=== PATIENT | female | born 1975 | race Caucasian/White ===

== ENCOUNTER → 2021-04-13 | Outpatient (CLI) | payer OTHER ==
[~2021-04-13] MED LIST: CLEOCIN HCL300 MG PO; CLONAZEPAM0.5 MG PO; IBUPROFEN800 MG PO; LORCET PLUS 7.1 EACH PO; LOVENOX SY40 MG/0.4 SQ; PERCOCET 5/325 T1 EA PO; VITAMIN C 500500 MG PO; VITAMIN D PO
== END ==
LOC: KOH-I 13:49
DX: M79.672 Pain in left foot (principal)
CPT/HCPCS: 73630

== ENCOUNTER → 2022-01-24 | Outpatient (CLI) | payer OTHER | LOC: KOH-I 14:08 | DX: M79.672 Pain in left foot (principal); M19.072 Primary osteoarthritis, left ankle and foot | CPT/HCPCS: 73630 ==

== ENCOUNTER → 2022-06-14 | Outpatient (CLI) | payer OTHER | LOC: KOH-I 14:05 | DX: M79.672 Pain in left foot (principal); Z96.698 Presence of other orthopedic joint implants | CPT/HCPCS: 73630 ==